=== PATIENT | female | born 1955 | race Caucasian/White ===

== ENCOUNTER 2018-01-26 18:08 | Emergency (ER) | payer MEDICAID ==
[~2018-01-26] VITALS: Ht 157.5 cm; Wt 82.1 kg
[~2018-01-26 18:08] MED LIST: PRED-188 PO; [UNRECOGNIZED DRUG - CODE] PO
[2018-01-26 21:57] VITALS: BP 106/72
[2018-01-26] MEDS ORDERED: SODIUM CHLORIDE 0.9% 1,000 ML IV ONE (22:00)
[2018-01-26 22:28] LABS: Basophils # (auto) 0 uL; Basophils % (auto) 0.1 % (0.0-2.0); Eosinophils # (auto) 0 uL; Hematocrit 34.6 % (36.0-46.0); Hemoglobin 11.6 g/dL (12.2-16.2); Lymphocytes # (auto) 1.1 uL; Lymphocytes % (auto) 22.5 % (10.0-50.0); Mean Corpuscular Hemoglobin 32.3 pg (28.0-32.0); Mean Corpuscular Hgb Conc. 33.6 g/dL (32.0-36.0); Mean Corpuscular Volume 96.2 fL (80.0-100.0); Monocytes # (auto) 0.5 uL; Monocytes % (auto) 10.5 % (0.0-12.0); Neutrophils # (auto) 3.2 uL; Neutrophils % (auto) 66.9 % (37.0-80.0); Platelet Count (auto) 156 10^3/uL (140-450); Red Cell Distribution Width 14.3 % (11.8-14.3); White Blood Cell 4.8 10^3/uL (4.4-10.8)
[2018-01-26 22:43] LABS: Alanine Aminotransferase 33 U/L (13-56); Albumin 3.6 g/dL (3.4-5.0); Anion Gap 13 (5-15); Blood Urea Nitrogen 41 mg/dL (7-18); Calcium 8.4 mg/dL (8.5-10.1); Carbon Dioxide 22 mmol/L (21-32); Chloride 111 mmol/L (98-107); GFR African American 72 mL/min; GFR Non-African American 60 mL/min; Glucose 82 mg/dL (74-106); Magnesium 2.4 mg/dL (1.6-2.6); Potassium 4.6 mmol/L (3.5-5.1); Sodium 146 mmol/L (136-145)
[2018-01-26 22:49] LABS: Alkaline Phosphatase 88 U/L (45-117); Aspartate Aminotransferase 36 U/L (15-37); Bilirubin, Total 0.5 mg/dL (0.2-1.0); Total Protein 7.2 g/dL (6.4-8.2)
[2018-01-26 22:50] LABS: INR 0.95 (0.9-1.15); Partial Thromboplastin Time 27.1 sec (23.78-33.04); Prothrombin Time 10.2 sec (9.27-12.13)
== END 2018-01-26 23:17 | disposition left against medical advice (07) ==
LOC: ER 18:08
DX: R52 Pain, unspecified (principal); R44.3 Hallucinations, unspecified; Z88.8 Allergy status to other drugs, medicaments and biological substances; Z79.899 Other long term (current) drug therapy; Z53.29 Procedure and treatment not carried out because of patient's decision for other reasons
CPT/HCPCS: 36415; 80053; 83735; 84484; 85025; 85610; 85730; 94761; 99284; J7030